=== PATIENT | male | born 1970 | race American Indian/Alaskan Native ===

== ENCOUNTER 2020-09-27 20:54 | Emergency (ER) | payer OTHER ==
[2020-09-27] MEDS ORDERED: FAMOTIDINE 20 MG TAB PO ONE (23:09)
[2020-09-27] MEDS ORDERED: LIDOCAINE VISCOUS 2% 15 ML ORAL LIQD PO ONE (23:09)
[2020-09-27] MEDS ORDERED: ALUM-MAG HYDROXIDE-SIMETHICONE 200-200-20MG/5ML ORAL LIQD 30 ML PO ONE (23:09)
[2020-09-27 23:15] LABS: Bacteria,Urine 1+ /HPF (Negative); Bilirubin,Urine NEG (Negative); Blood,Urine MOD (Negative); Color,Urine Yellow (Yellow); Mucus,Urine 3+ /HPF; Protein,Urine <15 mg/dL mg/dL (Negative); Urobilinogen,Urine < 2.0 mg/dL (<2.0)
[2020-09-27 23:47] LABS: Basophils % (Auto) 0.5 % (0.0-1.8); Eosinophils % (Auto) 0.4 % (0.0-4.3); Hematocrit 45.2 % (35.5-45.6); Hemoglobin 15.3 gm/dl (11.8-15.2); Lymphocytes # (Auto) 1.1 K/mm3 (1.2-5.4); Lymphocytes % (Auto) 14.5 % (13.4-35.0); Mean Corpuscular HGB Conc 34 % (32-34); Mean Corpuscular Volume 83 fl (84-94); Monocytes # (Auto) 0.5 K/mm3 (0.0-0.8); Monocytes % (Auto) 6.6 % (0.0-7.3); Platelet Count 182 K/mm3 (140-440); Red Blood Count 5.43 M/mm3 (3.65-5.03); Red Cell Distribution Width 14.5 % (13.2-15.2)
[2020-09-27 23:54] LABS: Alanine Aminotransferase 34 units/L (7-56); Albumin 4.6 g/dL (3.9-5); BUN/Creatinine Ratio 14; Blood Urea Nitrogen 15 mg/dL (9-20); Calcium 9.1 mg/dL (8.4-10.2); Hemolysis Index 9
--- NOTE | 2020-09-28 00:11 | Emergency Department Report ---
ED N/V/D HPI - General Chief complaint: Nausea/Vomiting/Diarrhea Stated complaint: FEVER;DIARRHEA;STOMACH ULCERS Source: patient Mode of arrival: Ambulatory Limitations: No Limitations - History of Present Illness Initial comments: Patient is a 50-year-old -[place] male with a history of chronic peptic ulcer disease and oox-uyhvxjw-cupddokfr diabetes who presents to the ED with complaint of acute onset persistent diarrhea and mild epigastric pain for the last 12 hours. Patient also complains of diffuse body aches and pains with chills and fever up to 100 F. Patient states that he has had multiple diarrhea episodes and suspect that it may have been from some food that he ate 24 hours ago. Patient states that he has been drinking a lot of fluids since the onset of the symptoms. Patient denies dizziness, syncope, chest pain, shortness of breath, nausea and vomiting, cough, sore throat, headache, lightheadedness, dysuria, urinary frequency and urgency, hematemesis, hematochezia or change in vision. MD complaint: diarrhea, abdominal pain -: Sudden, hour(s) (12) Description of Diarrhea: water Associated Abdominal Pain: Yes (Mild epigastric pain) Location: epigastric Radiation: none Severity: mild Pain Scale: 2 Quality: aching, dull Consistency: intermittent Improves with: none Worsens with: bowel movement Context: possible food poisoning Associated Symptoms: denies other symptoms, myalgias, fever/chills, loss of appetite, malaise. denies: chest pain, cough, diaphoresis, headaches, nausea/vomiting, rash, dysuria, shortness of breath, syncope, weakness - Related Data Previous Rx's Medication Instructions Recorded Last Taken Type Dicyclomine [Bentyl] 20 mg PO Q6H PRN #24 tablet 09/28/20 Unknown Rx Famotidine [Pepcid] 20 mg PO Q12H #30 tablet 09/28/20 Unknown Rx Allergies Allergy/AdvReac Type Severity Reaction Status Date / Time No Known Allergies Allergy Unverified 09/27/20 21:53 ED Review of Systems ROS: Stated complaint: FEVER;DIARRHEA;STOMACH ULCERS Other details as noted in HPI Constitutional: chills, fever, malaise, weakness Eyes: denies: eye pain, eye discharge, vision change ENT: denies: ear pain, throat pain Respiratory: denies: cough, shortness of breath, wheezing Cardiovascular: denies: chest pain, palpitations Endocrine: no symptoms reported Gastrointestinal: abdominal pain, diarrhea Genitourinary: denies: urgency, dysuria Musculoskeletal: myalgia. denies: back pain, joint swelling, arthralgia Skin: denies: rash, lesions Neurological: denies: headache, weakness, paresthesias Psychiatric: denies: anxiety, depression Hematological/Lymphatic: denies: easy bleeding, easy bruising ED Past Medical Hx - Past Medical History Previous Medical History?: Yes Hx Diabetes: Yes Additional medical history: Stomach Ulcers - Surgical History Past Surgical History?: No - Social History Smoking Status: Never Smoker Substance Use Type: None - Medications Home Medications: Home Medications Medication Instructions Recorded Confirmed Last Taken Type Dicyclomine [Bentyl] 20 mg PO Q6H PRN #24 tablet 09/28/20 Unknown Rx Famotidine [Pepcid] 20 mg PO Q12H #30 tablet 09/28/20 Unknown Rx ED Physical Exam - General Limitations: No Limitations General appearance: alert, in no apparent distress - Head Head exam: Present: atraumatic, normocephalic, normal inspection - Eye Eye exam: Present: normal appearance, PERRL, EOMI Pupils: Present: normal accommodation - ENT ENT exam: Present: normal exam, normal orophraynx, mucous membranes moist, TM's normal bilaterally, normal external ear exam - Neck Neck exam: Present: normal inspection, full ROM - Respiratory Respiratory exam: Present: normal lung sounds bilaterally. Absent: respiratory distress, wheezes, rales, rhonchi, chest wall tenderness, decreased breath sounds, prolonged expiratory - Cardiovascular Cardiovascular Exam: Present: normal rhythm, tachycardia, normal heart sounds. Absent: systolic murmur, diastolic murmur, rubs, gallop - GI/Abdominal GI/Abdominal exam: Present: soft, normal bowel sounds. Absent: tenderness, guarding, rebound, hyperactive bowel sounds, hypoactive bowel sounds - Extremities Exam Extremities exam: Present: normal inspection, full ROM, normal capillary refill - Back Exam Back exam: Present: normal inspection, full ROM. Absent: tenderness, CVA tenderness (R), CVA tenderness (L), muscle spasm, paraspinal tenderness, vertebral tenderness - Neurological Exam Neurological exam: Present: alert, oriented X3, CN II-XII intact, normal gait, reflexes normal - Psychiatric Psychiatric exam: Present: normal affect, normal mood - Skin Skin exam: Present: warm, dry, intact, normal color. Absent: rash ED Course Vital Signs 09/27/20 21:31 Temperature 100.5 F H Pulse Rate 110 H Respiratory 18 Rate Blood Pressure 102/61 O2 Sat by Pulse 98 Oximetry ED Medical Decision Making - Lab Data Result diagrams: 09/27/20 22:58 09/27/20 22:58 - Medical Decision Making This is a 50-year-old -[place] male with a history of chronic peptic ulcer disease and nre-wrlxevf-[id number] diabetes who presents to the ED with complaint of acute onset persistent diarrhea and mild epigastric pain for the last 12 hours. Patient also complains of diffuse body aches and pains with chills and fever up to 100 F. Patient states that he has had multiple diarrhea episodes and suspect that it may have been from some food that he ate 24 hours ago. Patient states that he has been drinking a lot of fluids since the onset of the symptoms. In the ED, patient is alert and oriented x3 and is not in any distress. Patient is however tachycardic and febrile in triage. Lab test results were reviewed and are all nonactionable. Patient was treated in the ED with antacids and on reevaluation, patient felt better. The fever and tachycardia also resolved in the ED. Based on the history and physical exam findings, the patient is likely having a viral gastroenteritis resulting in extensive diarrhea episodes. Patient was therefore discharged home on medications and advised to follow-up with his primary care physician in 3 to 5 days for reevaluation. Patient is advised to drink plenty of fluids urine as he takes the medications to prevent dehydration. Patient was otherwise advised return to the ED immediately if his symptoms get worse. - Differential Diagnosis Viral gastroenteritis; dehydration; GERD; gastritis; peptic ulcer disease Critical care attestation.: If time is entered above; I have spent that time in minutes in the direct care of this critically ill patient, excluding procedure time. ED Disposition Clinical Impression: Viral gastroenteritis, Diarrhea in adult patient, Flu-like symptoms GERD (gastroesophageal reflux disease) Qualifiers: Esophagitis presence: esophagitis presence not specified Qualified Code(s): K21.9 - Gastro-esophageal reflux disease without esophagitis Disposition: - TO HOME OR SELFCARE Is pt being admited?: No Does the pt Need Aspirin: No Condition: Stable Instructions: Viral Gastroenteritis, Adult, [id number], Diarrhea, Adult, [id number] Additional Instructions: All lab test results were reviewed and are all nonactionable. Therefore drink plenty of fluids, take medication as needed and follow-up with your primary care physician in 3 to 5 days for reevaluation. Return to the ED immediately if symptoms get worse. Prescriptions: Dicyclomine [Bentyl] 20 mg PO Q6H PRN #24 tablet PRN Reason: Abdominal pain Famotidine [Pepcid] 20 mg PO Q12H #30 tablet Referrals: [facility] [Provider Group] - 3-5 Days Forms: Work/School Release Form(ED) Time of Disposition: 00:16 Print Language: UKRAINIAN
[2020-09-28] MEDS ORDERED: ACETAMINOPHEN 500 MG TAB PO ONE (00:22)
[2020-09-28 00:24] VITALS: BP 134/77
== END 2020-09-28 00:45 | disposition home or self-care (01) ==
LOC: ED 20:54
DX: A08.4 Viral intestinal infection, unspecified (principal); K21.9 Gastro-esophageal reflux disease without esophagitis; Z79.899 Other long term (current) drug therapy
CPT/HCPCS: 36415; 80053; 81001; 85025; 99283